=== PATIENT | male | born 1960 | race Caucasian/White ===

== ENCOUNTER 2023-05-16 13:41 | Outpatient (CLI) | payer BC ==
[2023-05-16] MEDS ORDERED: Magnevist 469MG/ML 20 ML VIAL ONE (13:46)
== END 2023-05-16 13:42 | disposition home or self-care (01) ==
LOC: CSHMRI 13:41
PROVIDERS: ATTEND Urology
DX: R97.20 Elevated prostate specific antigen [PSA] (principal); Z80.42 Family history of malignant neoplasm of prostate; N42.32 Atypical small acinar proliferation of prostate; Z98.890 Other specified postprocedural states
CPT/HCPCS: 72197; A9579